=== PATIENT | female | born 1995 | race Caucasian/White ===

== ENCOUNTER 2017-09-16 21:59 | Emergency (ER) | payer BC ==
[2017-09-16 22:09] VITALS: BP 126/65; PULSE 100; RESP 20; TEMP 97.6; O2SAT 100
--- NOTE | 2017-09-16 23:57 | C.PDOC ---
History Of Present Illness 22 year old female presents to the ER with a complaint of a one day Hx of nasal congestion and cough, associated with vomiting and diarrhea. Denies fever, GI bleeding, abdominal pain, sick contact, or recent travel. Time Seen by Provider: 09/16/17 22:26 Chief Complaint (Nursing): Flu-like Symptoms History Per: Patient History/Exam Limitations: no limitations Onset/Duration Of Symptoms: Days Current Symptoms Are (Timing): Still Present Location Of Pain: None Sick Contacts (Context): None Associated Symptoms: Cough, Nasal Congestion, Vomiting, Diarrhea. denies: Fever , Other (GI bleeding, Abdominal pain) Ear Symptoms: Bilateral: None Recent travel outside of the [place]: No Past Medical History Reviewed: Historical Data, Nursing Documentation, Vital Signs Vital Signs: Last Vital Signs Temp 97.6 F 09/16/17 22:06 Pulse 100 H 09/16/17 22:06 Resp 20 09/16/17 22:06 BP 126/65 09/16/17 22:06 Pulse Ox 100 09/17/17 04:02 Family History: States: Unknown Family Hx - Social History Hx Alcohol Use: No Hx Substance Use: No - Immunization History Hx Tetanus Toxoid Vaccination: No Hx Influenza Vaccination: No Hx Pneumococcal Vaccination: No Review Of Systems Constitutional: Negative for: Fever, Chills ENT: Positive for: Nose Congestion Respiratory: Positive for: Cough Gastrointestinal: Positive for: Vomiting, Diarrhea. Negative for: Abdominal Pain, Other (GI bleed) Physical Exam - Physical Exam Appears: Well, Non-toxic, No Acute Distress Skin: Normal Color, Warm, Dry, No Rash Head: Atraumatic, Normacephalic Eye(s): bilateral: Normal Inspection, PERRL, EOMI Ear(s): Bilateral: Normal Nose: Discharge (Clear) Oral Mucosa: Moist Throat: Normal, No Erythema, No Exudate Neck: Normal, Supple Chest: Symmetrical, No Tenderness Cardiovascular: Rhythm Regular, No Friction Rub, No Murmur Respiratory: Normal Breath Sounds, No Rales, No Rhonchi, No Wheezing Gastrointestinal/Abdominal: Soft, No Tenderness Back: Normal Inspection, No CVA Tenderness Extremity: Normal ROM, No Swelling Neurological/Psych: Oriented x3, Normal Speech, Normal Motor Gait: Steady ED Course And Treatment O2 Sat by Pulse Oximetry: 100 (Room air) Pulse Ox Interpretation: Normal Medical Decision Making Medical Decision Making: Manuel administered and patient started on tamiflu. Patient is resting comfortably in the ER in no acute distress, will discharge home with Rx and instructions to follow up with PMD or return if symptoms worsen. Disposition - Disposition Referrals: Andre Chávez MD [Primary Care Provider] - Disposition: HOME/ ROUTINE Disposition Time: 23:57 Condition: FAIR Additional Instructions: Follow up with the medical doctor within 1-2 days. Return if worsened. 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 - Scribe Statement The provider has reviewed the documentation as recorded by the Scribrodo Estrella All medical record entries made by the Onofreibrodo were at my direction and personally dictated by me. I have reviewed the chart and agree that the record accurately reflects my personal performance of the history, physical exam, medical decision making, and the department course for this patient. I have also personally directed, reviewed, and agree with the discharge instructions and disposition.
== END 2017-09-17 00:04 | disposition home or self-care (01) ==
LOC: SUPCPDRO 21:59 → C.ER 21:59
DX: J11.1 Influenza due to unidentified influenza virus with other respiratory manifestations (principal)

== ENCOUNTER 2018-01-27 05:01 | Emergency (ER) | payer BC ==
[2018-01-27] MEDS ORDERED: Dexamethasone 4 mg/1 ml IM STA (05:51)
--- NOTE | 2018-01-27 06:04 | C.PDOC ---
History Of Present Illness 22 year old female presents to the ER with a complaint of sore throat and right ear pain for the past week that has worsened today. Patient just completed a course of z-pack, last dose yesterday, but states she her pain is unchanged. Denies fever, drooling, headache, or dizziness. Time Seen by Provider: 01/27/18 05:29 Chief Complaint (Nursing): ENT Problem History Per: Patient History/Exam Limitations: None Onset/Duration Of Symptoms: Days Current Symptoms Are (Timing): Still Present Quality (Mouth/Throat): Tenderness Symptoms Have Been: Continuous Anticoagulant/Antiplatlet Use?: No Past Medical History Reviewed: Historical Data, Nursing Documentation, Vital Signs Vital Signs: Last Vital Signs Temp 98.9 F 01/27/18 05:14 Pulse 80 01/27/18 05:14 Resp 14 01/27/18 05:14 BP 123/82 01/27/18 05:14 Pulse Ox 99 01/27/18 06:12 Family History: States: Unknown Family Hx - Social History Hx Alcohol Use: No Hx Substance Use: No - Immunization History Hx Tetanus Toxoid Vaccination: No Hx Influenza Vaccination: No Hx Pneumococcal Vaccination: No Review Of Systems Constitutional: Negative for: Fever ENT: Positive for: Ear Pain, Throat Pain Respiratory: Negative for: Cough Neurological: Negative for: Headache Physical Exam - Physical Exam Appears: Non-toxic Skin: Normal Color, Warm, Dry Head: Atraumatic, Normacephalic Eye(s): bilateral: Normal Inspection Ear(s): Bilateral: Normal Nose: Normal Oral Mucosa: Moist Throat: Other (Erythematous swollen tonsils, right greater than left, no apparent abscess, uvula midline) Neck: Normal, Supple Lymphatic: Adenopathy (Submandibular) Chest: Symmetrical, No Tenderness Cardiovascular: Rhythm Regular Respiratory: Normal Breath Sounds, No Rales, No Rhonchi, No Wheezing Neurological/Psych: Oriented x3, Normal Speech ED Course And Treatment O2 Sat by Pulse Oximetry: 99 (Room air) Pulse Ox Interpretation: Normal Progress Note: Decadron administered. Patient is resting comfortably in the ER in no acute distress, vitals are stable, will discharge home with Rx and instructions to follow up with PMD or return if symptoms worsen. Disposition Counseled Patient/Family Regarding: Diagnosis, Need For Followup, Rx Given - Disposition Referrals: Dion Enciso MD [Staff Provider] - Disposition: HOME/ ROUTINE Disposition Time: 06:02 Condition: STABLE Additional Instructions: Please follow up with PMD or with Dr Enciso Take meds as directed Gargle with salt water Use chloraseptic spray Return to ER if worse Prescriptions: Clindamycin [Cleocin] 300 mg PO QID #20 cap Ibuprofen [Motrin] 600 mg PO Q6H #20 tab predniSONE [Prednisone] 20 mg PO DAILY #7 tab Instructions: Sore Throat, Adult (DC) Forms: [facility] (Georgian) - Clinical Impression Clinical Impression: Pharyngitis - 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 - Scribe Statement The provider has reviewed the documentation as recorded by the Scribrood Estrella All medical record entries made by the Onofreibrodo were at my direction and personally dictated by me. I have reviewed the chart and agree that the record accurately reflects my personal performance of the history, physical exam, medical decision making, and the department course for this patient. I have also personally directed, reviewed, and agree with the discharge instructions and disposition.
[2018-01-27 06:29] VITALS: BP 127/72; PULSE 74; RESP 17; TEMP 98.5
[2018-01-27 06:50] VITALS: O2SAT 99
== END 2018-01-27 06:29 | disposition home or self-care (01) ==
LOC: C.ER 05:01
DX: J02.9 Acute pharyngitis, unspecified (principal)
CPT/HCPCS: 96372; 99282; J1100

== ENCOUNTER 2018-11-27 19:32 | Emergency (ER) | payer BC ==
[2018-11-27 19:45] VITALS: BP 108/73; PULSE 88; RESP 16; TEMP 97.6; O2SAT 98
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
--- NOTE | 2018-11-28 09:17 | RAD ---
Right ankle three views HISTORY: Ankle pain. COMPARISON: None available. FINDINGS: Prominent lateral malleolar soft tissue swelling. No evidence of acute displaced fracture or dislocation. Ankle mortise is maintained. Talar dome is intact. Impression: Prominent lateral malleolar soft tissue swelling. If pain persists, consider correlation with MRI.
== END 2018-11-27 21:41 | disposition home or self-care (01) ==
LOC: C.ER 19:32
DX: S93.401A Sprain of unspecified ligament of right ankle, initial encounter (principal); W19.XXXA Unspecified fall, initial encounter